=== PATIENT | male | born 1945 | race Caucasian/White ===

== ENCOUNTER 2022-09-13 14:49 | Emergency (ER) | payer MEDICARE, MEDICAID, SELFPAY ==
[2022-09-13 14:56] VITALS: BP 143/74; PULSE 82; RESP 14; TEMP 36.6; O2SAT 96; BMI 24.4
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
[2022-09-13 16:03] LABS: Add Manual Diff / Slide Review NO; Basophils Absolute Auto 0 /uL (0-100); Basophils Percent Auto 0.8 % (0-2); Eosinophils Absolute Auto 100 /uL (0-450); Eosinophils Percent Auto 2.4 % (2-4); Hematocrit 35.4 % (41-53); Hemoglobin 12.3 g/dL (13.5-17.5); Lymphocytes Absolute Auto 900 /uL (1100-4500); Lymphocytes Percent Auto 16.4 % (25-40); Mean Corpuscular HGB Conc 34.7 % (30-36); Mean Corpuscular Volume 100.8 fL (80-100); Monocytes Absolute Auto 600 /uL (0-900); Monocytes Percent Auto 10.2 % (3-14); Neutrophils Absolute Auto 3900 /uL (1500-7000); Neutrophils Percent Auto 70.2 % (50-75); Platelet Count 182 X10^3/uL (150-400); Red Blood Cell Count 3.51 X10^6/uL (4.5-5.9); Red Cell Distribution Width 13.5 % (11.6-14.8); White Blood Cell Count 5.6 X10^3/uL (4.5-11.0)
[2022-09-13 16:11] LABS: INR 1.1 (0.9-1.3); Prothrombin Time 12.8 SECONDS (10.1-12.7)
[2022-09-13 16:14] LABS: PTT Partial Thromboplastin Tim 29 SECONDS (26-36)
[2022-09-13 16:15] LABS: Alanine Aminotransferase 24 IU/L (<50); Albumin 4.1 g/dL (3.5-5.0); Albumin Globulin Ratio 1.6 (1.0-2.8); Alkaline Phosphatase 50 U/L (38-126); Aspartate Aminotransferase 28 IU/L (17-59); BUN Creatinine Ratio 21.6 (6-22); Bilirubin Total 0.4 mg/dL (0.2-1.3); Blood Urea Nitrogen 16 mg/dL (9-20); Calcium 9.2 mg/dL (8.4-10.2); Carbon Dioxide 22 mmol/L (22-32); Chloride 104 mmol/L (98-107); Estimated Glomerular Filt Rate > 60 mL/min (>60); Globulin 2.5 g/dL (1.7-4.1); Glucose 96 mg/dL (80-110); HEMOLYSIS < 15 (0-50); Lipase 80 U/L (23-300); Potassium 3.9 mmol/L (3.4-5.1); Sodium 134 mmol/L (137-145); Total Protein 6.6 g/dL (6.3-8.2)
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
--- NOTE | 2022-09-13 16:50 | PC.NURSE ---
patient was left in the waiting room in his wheel chair and was requesting to let him wheel himself to a place where he could be comfortable.
--- NOTE | 2022-09-13 16:51 | PC.NURSE ---
Patient stated that he was not dizzy anymore
--- NOTE | 2022-09-13 17:47 | PC.NURSE ---
Annie from [facility] stated that the patient did not have any issues transferring himself from [facility] to the CT table. He was able to bear full weight on his legs without complaints of pain
[2022-09-13 17:49] VITALS: BP 172/81; PULSE 69; RESP 18; O2SAT 99
--- NOTE | 2022-09-13 18:00 | PC.NURSE ---
patient was wheeled out to the ED entrance in wheel only because he was going to sit and wait for the cab. In room 5 prior to leaving the facility he was able to stand on his own with a cane without dizziness or lightheadedness. He stated that he felt like he was able get himself into the cab. He was instructed to have the cabinet abrasive sandblaster tell admitting if he needed help getting into the cab. He stated an understanding of the instructions and was comfortable waiting on his own.
== END 2022-09-13 18:04 | disposition home or self-care (01) ==
PROVIDERS: Emergency Provider Student in an Organized Health Care Education/Training Program
DX: S39.92XA Unspecified injury of lower back, initial encounter (principal); S09.90XA Unspecified injury of head, initial encounter; V19.9XXA Pedal cyclist (driver) (passenger) injured in unspecified traffic accident, initial encounter
CPT/HCPCS: 36415; 70450; 71260; 72125; 74177; 80053; 83690; 85025; 85610; 85730; 93005; 99284

== ENCOUNTER 2022-10-15 10:59 | Emergency (ER) | payer MEDICARE, MEDICAID, SELFPAY ==
[2022-10-15 11:44] VITALS: BP 115/74; PULSE 80; RESP 20; TEMP 36.3; O2SAT 97; BMI 24.4
--- NOTE | 2022-10-15 11:52 | DI.RAD.S_ITS ---
PROCEDURE: XR ACUTE ABDOMEN SERIES INDICATIONS: constipated. TECHNIQUE: One view chest and two views of the abdomen were acquired. COMPARISON: [facility], CT, CT CHEST ABD PEL W CON, 09/13/2022, 16:16. FINDINGS: Surgical changes and devices: None. Chest: Diffusely increased interstitial markings likely representing fibrotic changes seen on recent CT. No focal pulmonary consolidations. Heart size is normal. No pleural effusions. No pneumoperitoneum. Abdomen: Bowel gas pattern is normal. Large burden of stool throughout the colon. No suspicious calcifications. Visualized solid organ contours appear normal. Bones: No suspicious bony lesions. IMPRESSION: Large burden of stool throughout the colon, consistent with constipation. Fibrotic lung changes. Dictated by: Param Lujan M.D. on 10/15/2022 at 13:38 Approved by: Param Lujan M.D. on 10/15/2022 at 13:39
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
[2022-10-15 15:25] VITALS: BP 123/67; PULSE 88; RESP 16; O2SAT 97
--- NOTE | 2022-10-15 19:03 | ED_ITS ---
HPI - Abdominal Pain <Velma Babb PA-C - Last Filed: 10/16/22 15:51> General Chief Complaint: Abdominal Pain Stated Complaint: fall t-6, constipated Time Seen by Provider: 10/15/22 14:59 Source: patient Mode of arrival: Family Vehicle History of Present Illness HPI narrative: 77-year-old male presents to the ED complaining of lower back pain and constipation for 1 week. Patient states that he has been taking MiraLax with minimal relief. Patient has been taking opioids for chronic pain which she is aware that it might cause constipation. Patient states that he injured his back when he fell on Saturday from tripping with the shoes. Patient denies any numbness, tingling, weakness, urinary hesitancy, urinary incontinence, stool incontinence, saddle paresthesias. Patient denies fever, chills, nausea, vo miting, lightheadedness, dizziness, syncope. Related Data Home Medications Medication Instructions Recorded Confirmed CA PANTOTHENATE/FOLIC ACID/VIT 1 tab PO QDAY ##0 09/12/10 (MULTIVITAMIN) Allergies Allergy/AdvReac Type Severity Reaction Status Date / Time No Known Drug Allergies Allergy Verified 10/15/22 11:44 Review of Systems <Velma Babb PA-C - Last Filed: 10/16/22 15:51> Review of Systems ROS Unobtainable: All systems reviewed & are unremarkable except as noted in HPI and below Constitutional Constitutional: Denies chills, Denies fatigue, Denies fever(s), Denies frequent falls, Denies lethargy and Denies weakness Eyes Eyes: Denies change in vision, Denies eye discharge, Denies irritation and Denies loss of vision ENT Ears, Nose, Mouth, and Throat: Denies change in voice, Denies dizziness, Denies neck pain, Denies sore throat and Denies throat swelling Cardiovascular Cardiovascular: Denies chest pain, Denies irregular heart rhythm, Denies lightheadedness, Denies palpitations, Denies dyspnea, Denies dyspnea on exertion and Denies orthopnea Respiratory Respiratory: Denies cough, Denies dyspnea, Denies dyspnea on exertion and Denies wheezing Gastrointestinal Gastrointestinal: Denies abdominal pain, Denies change in bowel habits, Reports constipation, Denies diarrhea, Denies nausea and Denies vomiting Genitourinary Genitourinary: Denies hematuria, Denies flank pain, Denies urinary incontinence and Denies urinary urgency Musculoskeletal Musculoskeletal: Reports back pain, Denies muscle weakness, Denies neck pain, Denies numbness and Denies tingling Integumentary/Breasts Skin/Breast: Denies pruritus, Denies erythema, Denies rash and Denies wounds Neurologic Neurologic: Denies behavioral changes, Denies confusion, Denies dizziness, Denies frequent falls, Denies loss of vision, Denies numbness, Denies tingling and Denies weakness Psychiatric Psychiatric: Denies anxiety, Denies behavioral changes, Denies confusion, Denies depression, Denies homicidal ideation and Denies suicidal ideation Endocrine Endocrine: Denies fatigue, Denies flushing and Denies palpitations Hematologic/Lymphatic Hematologic/Lymphatic: Denies easy bruising Allergic/Immunologic Allergic/Immunologic: Denies urticaria, Denies throat swelling and Denies wheezing Patient History <Velma Babb PA-C - Last Filed: 10/16/22 15:51> Social History Smoking Status: Never smoker Smoking Status: Never smoker alcohol intake frequency: a few times a month Substance Use Type: does not use Exam <Velma Babb PA-C - Last Filed: 10/16/22 15:51> Narrative Exam Narrative: Const General:?cooperative, healthy appearing and comfortable [facility] Head:?normal to inspection Ears:?hearing grossly normal bilaterally Nose:?external nose normal Face and sinus:?normal facial exam and sinuses nontender Mouth:?oral mucosae normal Throat:?posterior oropharynx normal Eyes General:?appearance normal, both eyes and all related structures Neck Neck:?normal visual inspection and no lymphadenopathy noted Resp Effort & Inspection:?normal respiratory effort Auscultation:?clear to auscultation bilaterally Cardio Rate:?regular rate Rhythm:?regular rhythm GI Abdomen is nondistended, nontender to palpation. There is a small lump above the epigastric region that patient states he has had for years, possibly a hernia. No CVA TTP. Musculoskeletal No midline tenderness to palpation. No paraspinal tenderness to palpation. There is full range of motion. Strength and sensation is intact. Patient is neurovascularly intact Neuro General:?patient alert, patient awake and patient oriented x3 Initial Vital Signs Initial Vital Signs: Vital Signs Temperature 97.4 F L 08/14/23 11:44 Pulse Rate 80 10/15/22 11:44 Respiratory Rate 20 10/15/22 11:44 Blood Pressure 115/74 10/15/22 11:44 Pulse Oximetry 97 10/15/22 11:44 Oxygen Delivery Method Room Air 10/15/22 11:44 <DO Dony Flor Last Filed: 10/17/22 07:33> Initial Vital Signs Initial Vital Signs: Vital Signs Temperature 97.4 F L 10/15/22 11:44 Pulse Rate 80 10/15/22 11:44 Respiratory Rate 20 10/15/22 11:44 Blood Pressure 115/74 10/15/22 11:44 Pulse Oximetry 97 10/15/22 11:44 Oxygen Delivery Method Room Air 10/15/22 11:44 Course <Velma Babb PA-C - Last Filed: 10/16/22 15:51> Orders Ordered: ED Orders 10/15/22 11:52 XR acute abdomen series Stat 10/15/22 11:57 XR lumbar spine 2-3V Stat Vital Signs Vital signs: Vital Signs - 8 hr 10/15/22 11:44 10/15/22 15:25 Temperature 97.4 F L Pulse Rate 80 88 Respiratory Rate 20 16 Blood Pressure 115/74 123/67 Pulse Oximetry 97 97 Oxygen Delivery Method Room Air Room Air <DO Dony Flor Last Filed: 10/17/22 07:33> Orders Ordered: ED Orders 10/15/22 11:52 XR acute abdomen series Stat 10/15/22 11:57 XR lumbar spine 2-3V Stat Vital Signs Vital signs: Vital Signs - 8 hr 10/15/22 11:44 10/15/22 15:25 Temperature 97.4 F L Pulse Rate 80 88 Respiratory Rate 20 16 Blood Pressure 115/74 123/67 Pulse Oximetry 97 97 Oxygen Delivery Method Room Air Room Air MDM - Abdominal Pain <SAMUEL Cruz Last Filed: 10/16/22 15:51> MDM Narrative Medical decision making narrative: 77-year-old male presents to the ED complaining of lower back pain and constipation for 1 week. Concern for constipation versus vertebral fractures versus musculoskeletal sprain/strain versus bowel obstruction versus other. Obtained lumbar spine x-ray and chest abdomen x-ray. Just abdomen x-ray shows severe constipation and no other acute findings. Lumbar x-ray was without acute findings. Discussed findings with patient. Recommend magnesium citrate for constipation. Recommend good hydration. Supportive care for the back pain. Recommend follow-up with the PCP as soon as possible. ED return precautions were discussed with patient. Patient verbalized understanding. Medical records reviewed: Yes Discharge Plan Departure Patient Disposition: Home Clinical Impression: Constipation Instructions: DI for Constipation Activity Restrictions/Additional Instructions: You were evaluated in the ED today for constipation. Your lumbar spine x-ray was normal. Your abdominal x-ray shows significant constipation but no other acute finding. You may take 300 mg of magnesium citrate to relieve the constipation. Please take close to a bathroom when you take it. Magnesium citrate is available at all drug stores [id number]. You may also continue taking the MiraLax daily. Please continue to stay well hydrated. It is very common to get constipation when you are taking opioids for pain control. Please follow-up with the PCP as soon as possible. Return to the ED if you have worsening symptoms, persistent vomiting. Prescriptions: No Action CA PANTOTHENATE/FOLIC ACID/VIT (MULTIVITAMIN) 1 tab PO QDAY Qty: 0 Stand Alone Forms: Patient Portal/API <Amina Christiansen DO - Last Filed: 10/17/22 07:33> Cosign ED Attending Gregorioature Attestation: I was immediately available in the department for consultation. Documentation has been reviewed.
== END 2022-10-15 15:23 | disposition home or self-care (01) ==
PROVIDERS: Emergency Provider Student in an Organized Health Care Education/Training Program
DX: K59.00 Constipation, unspecified (principal)
CPT/HCPCS: 72100; 74022; 99281; 99283